=== PATIENT | female | born 1970 | race Caucasian/White ===

== ENCOUNTER → 2018-04-03 | Outpatient (REF) | payer BC ==
[2018-04-03 13:16] LABS: FERRITIN 18 NG/ML (8-252)
== END ==
LOC: M LAB REF 11:56
DX: D64.9 Anemia, unspecified (principal)
CPT/HCPCS: 82728

== ENCOUNTER → 2020-04-17 | Outpatient (CLI) | payer BC ==
[2020-04-17 15:21] LABS: HEMATOCRIT 33.2 % (36.0-47.0); MEAN CORPUSCULAR HEMOGLOBIN 33.6 pg (27.0-33.0); MEAN CORPUSCULAR HGB CONC 33.1 g/dl (32.0-36.5); MEAN CORPUSCULAR VOLUME 101.5 fl (80.0-96.0); PLATELET COUNT, AUTOMATED 263 10^3/uL (150-450); RED BLOOD COUNT 3.27 10^6/uL (4.00-5.40); WHITE BLOOD COUNT 4.5 10^3/uL (4.0-10.0)
[2020-04-17 15:41] LABS: THYROID STIMULATING HORMONE 1.18 uIU/ML (0.358-3.740); TOTAL 25(OH) VITAMIN D 28.6 NG/ML (30.0-100.0)
== END ==
LOC: M PLALAB 13:45
PROVIDERS: ATTEND Internal Medicine Endocrinology, Diabetes & Metabolism
DX: N95.1 Menopausal and female climacteric states (principal)

== ENCOUNTER → 2020-08-19 | Outpatient (CLI) | payer BC ==
[~2020-08-19] MED LIST: LORTAB 5/325 PO; MELA5CAP2 PO; MOTR200T44 PO; PROG1CAP9 PO
== END ==
LOC: M LABSMTC 08:11
PROVIDERS: ATTEND Anesthesiology
DX: Z01.812 Encounter for preprocedural laboratory examination (principal); Z20.822 Contact with and (suspected) exposure to COVID-19

== ENCOUNTER 2020-08-24 11:27 | Day surgery (SDC) | payer BC ==
[~2020-08-24] VITALS: Ht 157.5 cm; Wt 57.8 kg
[2020-08-24] VITALS (7 sets, daily range): BP systolic 94–124; BP diastolic 49–57
[~2020-08-24 11:27] MED LIST changes: -LORTAB 5/325 PO; +LR 1,000 ML IV ONE; -MELA5CAP2 PO; -MOTR200T44 PO; +ceFAZolin SOD 2 GM in IV 1 EA IV ONE
[2020-08-24] MEDS ORDERED: MELA5CAP2 PO (11:38)
[2020-08-24 12:09] LABS: HEMATOCRIT 35.9 % (36.0-47.0); HEMOGLOBIN 11.6 g/dl (12.0-15.5); MEAN CORPUSCULAR HEMOGLOBIN 32.1 pg (27.0-33.0); MEAN CORPUSCULAR HGB CONC 32.3 g/dl (32.0-36.5); MEAN CORPUSCULAR VOLUME 99.4 fl (80.0-96.0); PLATELET COUNT, AUTOMATED 266 10^3/uL (150-450); RED BLOOD COUNT 3.61 10^6/uL (4.00-5.40); WHITE BLOOD COUNT 4.8 10^3/uL (4.0-10.0)
[2020-08-24] MEDS ORDERED: SCOPOLAMINE 1MG TRANSDERMAL PATCH As Ordered ONE (13:22)
[2020-08-24] MEDS ORDERED: SCOPOLAMINE 1MG TRANSDERMAL PATCH TOP ONE (13:30)
[2020-08-24] MEDS ORDERED: MORPHINE 1MG/ML IN 0.9% NACL 100ML IV BAG As Ordered ONE (16:40)
[2020-08-24] MEDS ORDERED: NS 1,000 ML IV SCH (17:15)
[2020-08-24] MEDS ORDERED: MORPHINE 1MG/ML IN 0.9% NACL 100ML IV BAG IV PRN (17:15)
[2020-08-24] MEDS ORDERED: MEPERIDINE INJ 25 MG/ML VIAL (J2175) IV PRN (17:15)
[2020-08-24] MEDS ORDERED: METOCLOPRAMIDE INJ 10MG/2ML VIAL (J2765 PER 1) IV PRN (17:15)
[2020-08-24] MEDS ORDERED: LR 1,000 ML IV SCH ×2 (17:15)
[2020-08-24] MEDS ORDERED: EPIDURAL/PCA KEYS XX PRN (17:15)
[2020-08-24] MEDS ORDERED: NALOXONE INJ 0.4MG/1ML VIAL (J2310 PER 1MG) IV PRN (17:15)
[2020-08-24] MEDS ORDERED: ONDANSETRON 4MG/2ML VIAL IV PRN ×2 (17:15)
[2020-08-24] MEDS ORDERED: diphenhydrAMINE 50MG/ML VIAL (J1200) IV PRN (17:15)
[2020-08-24] MEDS ORDERED: oxyCODONE 5MG TAB PO PRN (17:15)
[2020-08-24] MEDS ORDERED: fentaNYL 100 MCG/2 ML INJECTION (J3010) IV PRN (17:15)
[2020-08-24] MEDS ORDERED: NALBUPHINE HCL 10 MG/ML AMP (J2300) IV PRN (17:15)
--- NOTE | 2020-08-24 18:22 | RO ---
OPERATIVE NOTE DATE OF OPERATION: 08/24/2020 PREOPERATIVE DIAGNOSIS/INDICATION FOR SURGERY: Pain, fibroids, bleeding. POSTOPERATIVE DIAGNOSIS: Pain, fibroids, bleeding with additional diagnoses of extensive endometriosis and adhesions. PROCEDURE: Robotic-assisted hysterectomy with left salpingo-oophorectomy and right salpingectomy. She retains her right ovary. The patient did not desire to be menopausal. SURGEON: Dejah Celeste MD [employer]EDIT LEAD: MIAN Davidson ANESTHESIA: General endotracheal anesthesia. SPECIMENS: Uterus, tubes, left ovary. BRIEF DESCRIPTION OF PROCEDURE AND FINDINGS: Ilana was brought to the operating room where sufficient general endotracheal anesthesia was induced. She was prepped, draped and positioned in the usual sterile fashion with the uterine manipulator placed and a Gramajo with the ability to back fill placed. Attention was then turned to the abdomen. A transverse semilunar incision was made below the umbilicus. Sharp and blunt dissection were continued through the subcutaneous tissues to the level of the rectus fascia where a transverse incision was made and the peritoneal cavity entered under direct visualization. 0 Vicryl retention sutures were placed in the rectus fascia and the #8 robotic trocar with the smooth introducer was placed under direct visualization. CO2 insufflation was then begun. After adequate CO2 insufflation, the peritoneal cavity was visualized. Throughout the upper abdomen, there were normal, shiny peritoneal surfaces without excrescence, ascites or exudate. In the pelvis, there was extensive scarring and adhesions and also what appeared to be endometriotic implants. This was also confirmed subsequently with chocolate cyst fluid released from the left ovary and from some areas that initially appeared to be scar tissue. There were extensive adhesions, of them more from the intestines on the left side but also the left ovary was just packed in the cul-de-sac as was the right and the patient has had left-sided pain and twinging and had said if there is something abnormal about that ovary, please take it out. Fortunately, it made it much easier to finding the plane because the entire left side of the uterus was obscured and some of the posterior cul-de-sac was obscured by the adhesions as is documented by the operative photos. Anteriorly, there did appear be some clear space and we did have a window there. We started off by dissecting without cautery through the adhesions to the bowel on that left side to free up the tissue and then it definitely appeared that there was just a lot of endometriotic implants there and scarring and that she had said that if her left ovary looked abnormal, to take it so we went ahead and decided to take it. The infundibulopelvic ligament on that left side was isolated, cauterized, transected. We then dissected down carefully. It did not use cautery on the sidewall because of course the ureter is there but we did dissect through the broad ligament toward and used cautery there to transect and then dissect anteriorly and come across the anterior aspect of the uterus. We backfilled the bladder to make sure we had a good idea where the bladder was and, of course, created the bladder flap from the left side and then worked with cold scissors to free the ovary from the pelvis. Again, it was adherent there overlying the area where the ureter would be. We then turned our attention to the right side and dissected through the round and then anteriorly and then worked back towards that ovary and the fallopian tube. We did elevate the tube from the ovary and free it first. The scarring had made the utero-ovarian suspensory ligament less readily located but since we had freed the round ligament and then dissected back through the broad towards the ovary, we were able to free the tissues therefore and we had that fallopian tube freed up off the ovary. We did drain what appeared to be a simple functional cyst on the right ovary just to decompress it and improve our visualization. Then we worked over the posterior cul-de-sac very slowly primarily using cold scissors, not cautery because the bowel was very close in this location. We were able to free it up but we left a very raw-looking atypical site over the posterior cervix. That area will all get in the lower uterine segment. That area will all get evaluated by the pathologist. The patient does not have a history of LEEP or other treatment there per her records. After we had freed up more than of those tissues and completed the bladder flap from the right side, we then cauterized the vessels, right and left. We had some control of the vasculature and then we went anteriorly for the colpotomy because of course posteriorly we had all that scar tissue and the planes were not typical and working from the anterior we came around on the left side where we had freed that ovary which gave us access to that area and because we were able to move that ovary out of the way, we were then able to continue that and then come back to the right side. We still had not completed posteriorly because of the scar tissue and the proximity to the bowel but we were able to get past the uterine vasculature on the left, have it under control and then work around anteriorly towards the right and then gradually worked towards the midline so some of that midline dissection was done with cold scissors because the bowel was so close so although yes that is typically cauterized, we just cut it rather than using cautery. Having freed the uterus with the attached tubes and left ovary, we then delivered that and then reevaluated the cuff. The vagina itself was all normal appearing so the inflammation all appeared to be on the peritoneal side. We did close the cuff with V-Loc suture with good approximation of hemostasis. We irrigated copiously. We also irrigated and pushed on the bowel, made sure we did not have any bubbles or evidence of any injury to the bowel. Because we worked cold posteriorly even though we were closer than we liked to be and even though the scarring had absolutely made the cul-de-sac abnormal, I do not think we injured either ureter or bowel and again, the ovary had been adherent through there so there were some segments of ovary remaining because as we dissected through some of those adhesions, we went ahead and skirted close to the ovary which we knew was coming out rather than the peritoneum and the possible retroperitoneal contents so we went back and collected a couple remnants of that left ovary so that we had completely removed it and when we had good hemostasis and approximation of the cuff, the procedure was ended. CO2 was allowed to escape the abdomen. The instruments were removed. The trocars were removed. The fascial wound at the umbilicus was closed with a 0 Vicryl retention suture. The skin at all four sites was closed with a subcuticular stitch of 3-0 Vicryl with good approximation and hemostasis achieved and dry sterile dressings were then applied. ESTIMATED BLOOD LOSS FOR THE PROCEDURE: About 100 mL. FLUID REPLACEMENT: Crystalloid. COMPLICATIONS: None. CONDITION AND DISPOSITION: Ilana tolerated the procedure well despite her anatomy with extensive adhesions and scarring and there did not appear to be any complications and she was recovering in the recovery room in good condition.
[2020-08-24] MEDS: IBUPROFEN 600MG TAB PO PRN (22:01)
[2020-08-25 00:03] VITALS: BP 107/50
[2020-08-25] MEDS ORDERED: LR 1,000 ML IV ONE (00:15)
[2020-08-25 00:29] LABS: HEMATOCRIT 28.7 % (36.0-47.0)
[2020-08-25 00:38] LABS: HEMOGLOBIN 9.5 g/dl (12.0-15.5)
[2020-08-25] MEDS ORDERED: PROMETHAZINE INJ 25 MG/ML VIAL (J2550) IV ONE ×2 (01:15→10:00)
[2020-08-25 04:00] VITALS: BP 101/56
[2020-08-25] MEDS: IBUPROFEN 600MG TAB PO PRN ×2 (05:41→13:26)
[2020-08-25] MEDS ORDERED: NORCO, ANEXSIA 5/325MG TABLET (HYDROcodone/ACETAMINOPHEN) PO PRN ×2 (06:00→10:00)
[2020-08-25 07:49] LABS: HEMATOCRIT 27.2 % (36.0-47.0); HEMOGLOBIN 9.1 g/dl (12.0-15.5); MEAN CORPUSCULAR HEMOGLOBIN 33.1 pg (27.0-33.0); MEAN CORPUSCULAR HGB CONC 33.5 g/dl (32.0-36.5); MEAN CORPUSCULAR VOLUME 98.9 fl (80.0-96.0); PLATELET COUNT, AUTOMATED 194 10^3/uL (150-450); RED BLOOD COUNT 2.75 10^6/uL (4.00-5.40); WHITE BLOOD COUNT 9.3 10^3/uL (4.0-10.0)
[2020-08-25 08:30] VITALS: BP 99/56
[2020-08-25] MEDS ORDERED: LACTATED RINGER'S 1000 ML IV ONE (10:00)
[2020-08-25 10:08] LABS: BLOOD UREA NITROGEN 12 MG/DL (7-18); CALCIUM LEVEL 7.9 MG/DL (8.5-10.1); CARBON DIOXIDE LEVEL 23 MEQ/L (21-32); CHLORIDE LEVEL 101 MEQ/L (98-107); CREATININE FOR GFR 0.49 MG/DL (0.55-1.30); GLOMERULAR FILTRATION RATE > 60.0 (>51); GLUCOSE, FASTING 87 MG/DL (70-100); POTASSIUM SERUM 4.1 MEQ/L (3.5-5.1); SODIUM LEVEL 134 MEQ/L (136-145)
[2020-08-25] MEDS ORDERED: LORTAB 5/325 PO (12:33)
[2020-08-25] MEDS ORDERED: MOTR200T44 PO (12:33)
== END 2020-08-25 13:30 | disposition home or self-care (01) ==
LOC: M SDC 11:27 → M PED 18:05 → M SDC 08-25 13:30
PROVIDERS: ATTEND Obstetrics & Gynecology
DX: N94.10 Unspecified dyspareunia (principal); D25.9 Leiomyoma of uterus, unspecified; N80.0 Endometriosis of uterus; R10.2 Pelvic and perineal pain; D64.9 Anemia, unspecified; K58.8 Other irritable bowel syndrome; Z79.899 Other long term (current) drug therapy
CPT/HCPCS: 36415; 58571; 80048; 81025; 85014; 85018; 85027; 86850; 86900; 86901; 88307; 96361; 96374; J0690; S2900

== ENCOUNTER → 2020-10-03 | Outpatient (CLI) | payer BC ==
[~2020-10-03] MED LIST changes: +LORTAB 5/325 PO; -LR 1,000 ML IV ONE; +MELA5CAP2 PO; +MOTR200T44 PO; -ceFAZolin SOD 2 GM in IV 1 EA IV ONE
--- NOTE | 2020-10-03 14:03 | REPMRS ---
Patient History The patient states she had a clinical breast exam in 04/2020 No known family history of cancer. Taking progesterone for 1 year. 3D TOMOSYNTHESIS WAS PERFORMED. The Dipesh Melgar lifetime risk for breast cancer is 10.2%. Volpara breast density d. Digital Woman Screen Mammo: October 03, 2020 - Exam #: [id number] Bilateral CC and MLO view(s) were taken. Technologist: Tamika Caro, Technologist Prior study comparison: 2018, bilateral digital mammo screening bilat, performed at [facility]. FINDINGS: The breast tissue is extremely dense which could obscure a lesion on mammography. There has been no change in the appearance of the mammogram from the prior studies. There is a moderate amount of residual fibroglandular tissue which is fairly symmetric. There is no interval development of dominant mass, areas of architectural distortion, or clustered microcalcification typical of malignancy. No significant changes when compared with prior studies. Assessment: BI-RADS/ACR category 1 mammogram. Negative Mammogram. Recommendation Routine screening mammogram in 1 year (for women over age 40). This mammogram was interpreted with the aid of an FDA-approved computer-aided dectection system. Electronically Signed By: Yohan Tanner MD 10/03/20 4299
== END ==
LOC: M WHC 13:25
PROVIDERS: ATTEND Obstetrics & Gynecology
DX: Z12.31 Encounter for screening mammogram for malignant neoplasm of breast (principal)